=== PATIENT | female | born 1980 | race African-American/Black ===

== ENCOUNTER 2017-03-15 12:24 | Emergency (ER) | payer SELFPAY, OTHER ==
[2017-03-15] MEDS ORDERED: Ketorolac Tromethamine 30 MG/ML VIAL ONE (13:07)
== END 2017-03-15 13:24 | disposition home or self-care (01) ==
LOC: ERS 12:24
DX: M77.12 Lateral epicondylitis, left elbow (principal); Z87.891 Personal history of nicotine dependence
CPT/HCPCS: 96372; 99406; J1885